=== PATIENT | male | born 1955 | race Caucasian/White ===

== ENCOUNTER → 2016-10-15 | Outpatient (CLI) | payer OTHER ==
--- NOTE | 2016-10-15 10:27 | DI ---
HISTORY: Fell on ice. Pain on the lateral aspect of the ankle. COMPARISON: None available. FINDINGS: There is no acute fracture or dislocation. Bony alignment and joint spaces are preserved. There are calcaneal spurs. There is soft tissue swelling, and MRI is recommended if clinical sympt oms persist. The ankle mortise is intact. IMPRESSION: 1. No acute fracture or dislocation. 2. There are calcaneal spurs. 3. Evidence of soft tissue swelling, and MRI is recommended if clinical symptoms persist.
--- NOTE | 2016-10-15 10:35 | DI ---
HISTORY: Fell on ice. Pain throughout the knee. Prior knee surgery. COMPARISON: None available. FINDINGS: There is no acute fracture or dislocation. Bony alignment and joint spaces are preserved. There is mild lateral subluxation of the patella. IMPRESSION: 1. No acute fracture. 2. Mild lateral subluxation of the patella.
== END ==
LOC: RAD 09:33
PROVIDERS: ATTEND Family Medicine
DX: M25.572 Pain in left ankle and joints of left foot (principal); M25.562 Pain in left knee; M77.32 Calcaneal spur, left foot; S83.012A Lateral subluxation of left patella, initial encounter; M79.89 Other specified soft tissue disorders; W00.0XXA Fall on same level due to ice and snow, initial encounter; Y93.89 Activity, other specified; Y92.481 Parking lot as the place of occurrence of the external cause
CPT/HCPCS: 73562; 73610; 99212

== ENCOUNTER → 2016-10-15 | Outpatient (CLI) | payer OTHER | LOC: MMPC 09:00 | PROVIDERS: ATTEND Family Medicine | DX: E29.1 Testicular hypofunction (principal); M25.572 Pain in left ankle and joints of left foot; M25.562 Pain in left knee; W00.0XXA Fall on same level due to ice and snow, initial encounter | CPT/HCPCS: G0463; J1071 ==

== ENCOUNTER → 2016-10-29 | Outpatient (CLI) | payer OTHER | LOC: MMPC 09:00 | PROVIDERS: ATTEND Family Medicine | DX: M62.838 Other muscle spasm (principal); R10.84 Generalized abdominal pain | CPT/HCPCS: 99213; G0463 ==

== ENCOUNTER → 2016-11-14 | Outpatient (CLI) | payer OTHER ==
[~2016-11-14] MED LIST: FUROSEMIDE 10 MG/1 ML - 4 ML IVP SCH
[2016-11-14] MEDS: Albumin Human Soln 25% 25 GM in Premix 1 BAG IV SCH ×2 (08:45→09:11)
[2016-11-14 09:30] VITALS: RESP 14; TEMP 97.9
== END ==
LOC: IV THERAPY 08:39
PROVIDERS: ATTEND Nurse Practitioner
DX: K74.60 Unspecified cirrhosis of liver (principal); R18.8 Other ascites
CPT/HCPCS: 82105; 96365; 96375; 99211; J1940

== ENCOUNTER → 2016-12-03 | Outpatient (CLI) | payer OTHER | LOC: MMPC 09:00 | PROVIDERS: ATTEND Family Medicine | DX: E29.1 Testicular hypofunction (principal) ==

== ENCOUNTER → 2016-12-13 | Outpatient (CLI) | payer OTHER ==
--- NOTE | 2016-12-13 16:19 | DI ---
CT ABDOMEN SCAN WITHOUT AND WITH IV CONTRAST, 12/13/2016 9:11 AM : Clinical History: Cirrhosis. Esophageal varices. Hepatitis C. Previous Exam: 12/02/2014. Scans are performed from the lower lung bases through the liver and kidneys without and with IV contr ast. Sagittal and coronal images are generated. 70 ml of Isovue 300 was injected IV. Low density oral barium contrast (Volumen - low density CT enterography oral contrast) was administered for all phase s of the exam. The lung bases are clear. The liver is small and has a nodular capsule without definite distortion of the vascular channels. This is consistent with the clinical diagnosis of cirrhosis. The patient is s tatus post cholecystectomy. There is splenomegaly with an intact splenic portal vein, but there are v arices in the splenic hilum and at the GE junction and along the left lateral aspect of the abdomen. Both kidneys are normal in size, shape, position and contour. There is no hydronephrosis or hydrouret er. No renal or ureteral calculi are present. There are no abnormal retrocrural or periaortic nodes. There is no ascites. READIN. Cirrhosis of the liver without evidence of primary or metastatic tumor. There is splenomegaly wit h esophageal and splenic varices as well as varices along the left lateral aspect of the abdomen. 2. The remainder of the exam is normal. CT PELVIS SCAN WITHOUT AND WITH IV CONTRAST, 12/13/2016 9:11 AM: Clinical History: See above. Previous Exam: 12/02/2014. Scans are performed from just superior to the umbilicus to the symphysis pubis without and with IV co ntrast. This is the same bolus of IV contrast used for the CT scans of the abdomen. Scans through the lower abdomen and pelvis show no masses or abnormal fluid collections. There is no adenopathy. The appendix is not visualized and may be surgically absent. There is no inflammatory mas s either in the right lower quadrant or in the cecal tip. The small bowel, terminal ileum, and ileoce raymond valve are intact. The colon is also normal. There are no hernias. There is a pigtail catheter in serted from the posterior approach along the superior margin of the right iliac crest and this lies o n the surface of the right iliacus muscle. There is evidence of localized inflammatory/infiltrative c hange but there is no fluid collection or abnormal gas collection to indicate presence of an abscess. READING: Normal CT scan of the pelvis. There is a pigtail catheter introduced from the posterior approach on t he right side superior to the iliac crest and lying on the anterior surface of the right iliacus musc le. There is no evidence of an abscess.
== END ==
LOC: CT 09:04
PROVIDERS: ATTEND Internal Medicine Gastroenterology
DX: K74.60 Unspecified cirrhosis of liver (principal); I85.00 Esophageal varices without bleeding; B18.2 Chronic viral hepatitis C; R16.1 Splenomegaly, not elsewhere classified
CPT/HCPCS: 74178

== ENCOUNTER 2017-01-01 12:45 | Outpatient (CLI) | payer OTHER ==
[~2017-01-01 12:45] MED LIST changes: +FUROSEMIDE 10 MG/1 ML - 4 ML IVP PRN; -FUROSEMIDE 10 MG/1 ML - 4 ML IVP SCH
[2017-01-01] MEDS: Albumin Human Soln 25% 25 GM in Premix 1 BAG IV SCH ×2 (12:55→13:27)
[2017-01-01 13:12] VITALS: RESP 18
[2017-01-01 14:28] VITALS: TEMP 98.6
== END 2017-01-01 14:15 | disposition home or self-care (01) ==
LOC: IV THERAPY 12:45
PROVIDERS: ATTEND Family Medicine
DX: R18.8 Other ascites (principal)
CPT/HCPCS: 96365; 96375; 99211; J1940

== ENCOUNTER → 2017-01-14 | Outpatient (CLI) | payer OTHER | LOC: MMPC 09:00 | PROVIDERS: ATTEND Family Medicine | DX: E29.1 Testicular hypofunction (principal) | CPT/HCPCS: G0463; J1071 ==

== ENCOUNTER → 2017-02-11 | Outpatient (CLI) | payer OTHER | LOC: MMPC 09:00 | PROVIDERS: ATTEND Family Medicine | DX: E29.1 Testicular hypofunction (principal); D63.8 Anemia in other chronic diseases classified elsewhere; K65.1 Peritoneal abscess | CPT/HCPCS: G0463; J1071 ==

== ENCOUNTER → 2017-02-12 | Outpatient (CLI) | payer OTHER ==
[2017-02-12 09:53] LABS: BUN/CREATININE RATIO 21.53 (6-20); CALCIUM 9.5 mg/dL (8.7-10.7); CHOL/HDL RATIO 2.91 RATIO (0-4.0); SERUM ALBUMIN 4.4 g/dL (3.5-4.8)
[2017-02-12 09:54] LABS: HEMOGLOBIN A1C 4.92 % (4.2-6.0)
[2017-02-12 10:07] LABS: FREE T4 (FREE THYROXINE) 1.08 ng/dL (0.93-1.71)
== END ==
LOC: LAB 09:01
PROVIDERS: ATTEND Family Medicine
DX: K65.1 Peritoneal abscess (principal); D63.8 Anemia in other chronic diseases classified elsewhere; K74.60 Unspecified cirrhosis of liver; K90.0 Celiac disease; Z79.899 Other long term (current) drug therapy; E29.1 Testicular hypofunction
CPT/HCPCS: 36415; 80053; 80061; 82105; 83036; 84439; 84443

== ENCOUNTER → 2017-03-14 | Outpatient (CLI) | payer OTHER ==
--- NOTE | 2017-03-14 10:23 | EKG ---
[address] [address] Measurements Intervals [place] Rate: 51 P: 47 [place]: 223 QRS: 7 QRSD: 113 T: 52 QT: 409 QTc: 385 Interpretive Statements SINUS BRADYCARDIA WITH FIRST DEGREE AV BLOCK POSSIBLE RIGHT VENTRICULAR CONDUCTION DELAY [RSR (QR) IN V1/V2] Compared to ECG 01/17/2016 11:48:38 First degree AV block now present Sinus rhythm no longer present Electronically Signed On 03-18-17 10:03:07 MDT by Damon Hemphill MD [email or web address]
== END ==
LOC: RAD 09:00
PROVIDERS: ATTEND Family Medicine
DX: M54.2 Cervicalgia (principal); R00.1 Bradycardia, unspecified; I44.0 Atrioventricular block, first degree
CPT/HCPCS: 93005; 93010

== ENCOUNTER → 2017-03-14 | Outpatient (CLI) | payer OTHER ==
[2017-03-14 10:21] LABS: BASOPHILS # (AUTO) 0.01 10*3/UL; BASOPHILS % (AUTO) 0.4 % (0-1); EOSINOPHILS # (AUTO) 0.06 10*3/UL; EOSINOPHILS % (AUTO) 2.1 % (0-8); HEMATOCRIT 36.7 % (42.0-52.0); HEMOGLOBIN 12.5 g/dL (14.0-18.0); LYMPHOCYTES # (AUTO) 0.67 10*3/uL; MEAN CORPUSCULAR HEMOGLOBIN 31.4 PG (27-31); MEAN CORPUSCULAR HGB CONC 34.1 g/dL (33-37); MEAN CORPUSCULAR VOLUME 92.2 FL (80-90); MEAN PLATELET VOLUME 9.9 FL (7.4-12.2); MONOCYTES # (AUTO) 0.36 10*3/UL (0.3-0.8); MONOCYTES % (AUTO) 12.8 % (5-15); NEUTROPHILS # (AUTO) 1.72 10*3/UL; NEUTROPHILS % (AUTO) 60.9 % (50-80); RED BLOOD COUNT 3.98 10^6/uL (4.70-6.10)
[2017-03-14 10:25] LABS: PLATELET MORPHOLOGY COMMENT NORMAL MORPHOLOGY (NORM); RBC MORPHOLOGY COMMENT NORMAL MORPHOLOGY (NORM); WBC MORPHOLOGY COMMENT NORMAL MORPHOLOGY (NORM)
[2017-03-14 10:31] LABS: BLOOD UREA NITROGEN 22 mg/dL (7-22); BUN/CREATININE RATIO 18.33 (6-20); CALCIUM 8.9 mg/dL (8.7-10.7); EST GLOMERULAR FILTRATION > 60 (>60 ml/min/1.73m(2)); SERUM ALBUMIN 4.1 g/dL (3.5-4.8)
[2017-03-14 10:48] LABS: HIV ANTIBODY NEGATIVE (N); HIV-1 P24 ANTIGEN NEGATIVE (N)
--- NOTE | 2017-03-14 11:18 | DI ---
HISTORY: Preoperative examination. COMPARISON: None available. FINDINGS: The heart is within normal limits. The lung taylor are essentially clear. IMPRESSION: 1. No acute cardiopulmonary abnormalities.
== END ==
LOC: RAD 09:41
PROVIDERS: ATTEND Family Medicine
DX: M54.2 Cervicalgia (principal); B18.2 Chronic viral hepatitis C
CPT/HCPCS: 36415; 71020; 80053; 85025; 85610; 85730; 86703; 86803; 87522

== ENCOUNTER → 2017-04-17 | Outpatient (CLI) | payer OTHER | LOC: MMPC 09:00 | PROVIDERS: ATTEND Family Medicine | DX: E29.1 Testicular hypofunction (principal); D63.8 Anemia in other chronic diseases classified elsewhere; D69.1 Qualitative platelet defects | CPT/HCPCS: G0463; J1071 ==

== ENCOUNTER → 2017-04-19 | Outpatient (CLI) | payer OTHER ==
[2017-04-19 08:59] LABS: HEMOGLOBIN 12.4 g/dL (14.0-18.0)
[2017-04-19 09:03] LABS: BASOPHILS # (AUTO) 0.01 10*3/UL; BASOPHILS % (AUTO) 0.3 % (0-1); EOSINOPHILS # (AUTO) 0.11 10*3/UL; EOSINOPHILS % (AUTO) 3.5 % (0-8); HEMATOCRIT 37.7 % (42.0-52.0); LYMPHOCYTES # (AUTO) 0.69 10*3/uL; MEAN CORPUSCULAR HEMOGLOBIN 30.7 PG (27-31); MEAN CORPUSCULAR HGB CONC 32.9 g/dL (33-37); MEAN CORPUSCULAR VOLUME 93.3 FL (80-90); MEAN PLATELET VOLUME 11.1 FL (7.4-12.2); MONOCYTES # (AUTO) 0.28 10*3/UL (0.3-0.8); MONOCYTES % (AUTO) 8.9 % (5-15); NEUTROPHILS # (AUTO) 2.05 10*3/UL; NEUTROPHILS % (AUTO) 65.3 % (50-80); RED BLOOD COUNT 4.04 10^6/uL (4.70-6.10)
[2017-04-19 09:52] LABS: PLATELET MORPHOLOGY COMMENT NORMAL MORPHOLOGY (NORM); RBC MORPHOLOGY COMMENT NORMAL MORPHOLOGY (NORM); WBC MORPHOLOGY COMMENT NORMAL MORPHOLOGY (NORM)
== END ==
LOC: LAB 08:31
PROVIDERS: ATTEND Family Medicine
DX: D69.1 Qualitative platelet defects (principal); K74.60 Unspecified cirrhosis of liver; D63.8 Anemia in other chronic diseases classified elsewhere
CPT/HCPCS: 36415; 85025

== ENCOUNTER → 2017-05-16 | Outpatient (CLI) | payer OTHER ==
--- NOTE | 2017-05-16 09:29 | DI ---
PA /LATERAL CHEST X-RAY, 05/16/2017 9:11 AM : Clinical History: Preoperative examination Previous Exam: March 14, 2017 There is no acute soft tissue or bony abnormality. Heart size is normal. Lungs are clear. Mediastinal structures are normal. There are no pulmonary nodules. There is a mild stable anterior wedging of th e lower thoracic spine. Postsurgical changes are seen at the cervicothoracic junction which are stabl e. IMPRESSION: Normal chest x-ray.
[2017-05-16 09:33] LABS: BLOOD UREA NITROGEN 23 mg/dL (7-22); CALCIUM 9.1 mg/dL (8.7-10.7); EST GLOMERULAR FILTRATION > 60 (>60 ml/min/1.73m(2))
--- NOTE | 2017-05-16 09:42 | EKG ---
[address] [address] Measurements Intervals [place] Rate: 49 P: 68 [place]: 215 QRS: 3 QRSD: 110 T: 57 QT: 433 QTc: 403 Interpretive Statements SINUS BRADYCARDIA WITH FIRST DEGREE AV BLOCK POSSIBLE RIGHT VENTRICULAR CONDUCTION DELAY [RSR (QR) IN V1/V2] Compared to ECG 03/14/2017 10:23:07 No significant changes Electronically Signed On 05-16-17 13:13:02 MDT by Damon Hemphill MD [email or web address]
[2017-05-16 10:15] LABS: HIV ANTIBODY NEGATIVE (N); HIV-1 P24 ANTIGEN NEGATIVE (N)
[2017-05-17 11:51] LABS: HEP B CORE IGM ANTIBODY Negative (Negative); HEPATITIS A IGM Negative (Negative); HEPATITIS B SURFACE AG Negative (Negative)
== END ==
LOC: RAD 09:07
PROVIDERS: ATTEND Nurse Practitioner
DX: M50.221 Other cervical disc displacement at C4-C5 level (principal); M50.222 Other cervical disc displacement at C5-C6 level; M54.12 Radiculopathy, cervical region; R00.1 Bradycardia, unspecified; I44.0 Atrioventricular block, first degree; D69.1 Qualitative platelet defects; E29.1 Testicular hypofunction
CPT/HCPCS: 36415; 71020; 80053; 85025; 85610; 85730; 86703; 86705; 86709; 86803; 87340; 87522; 93005; 93010

== ENCOUNTER → 2017-05-16 | Outpatient (CLI) | payer OTHER ==
[2017-05-16 09:27] LABS: BASOPHILS # (AUTO) 0.01 10*3/UL; BASOPHILS % (AUTO) 0.4 % (0-1); EOSINOPHILS % (AUTO) 3.7 % (0-8); HEMATOCRIT 38.8 % (42.0-52.0); HEMOGLOBIN 13.1 g/dL (14.0-18.0); LYMPHOCYTES # (AUTO) 0.62 10*3/uL; MEAN CORPUSCULAR HEMOGLOBIN 30.6 PG (27-31); MEAN CORPUSCULAR HGB CONC 33.8 g/dL (33-37); MEAN CORPUSCULAR VOLUME 90.7 FL (80-90); MEAN PLATELET VOLUME 11.3 FL (7.4-12.2); MONOCYTES % (AUTO) 11.1 % (5-15); NEUTROPHILS # (AUTO) 1.67 10*3/UL; NEUTROPHILS % (AUTO) 61.8 % (50-80); RED BLOOD COUNT 4.28 10^6/uL (4.70-6.10)
[2017-05-16 09:52] LABS: PLATELET MORPHOLOGY COMMENT NORMAL MORPHOLOGY (NORM); RBC MORPHOLOGY COMMENT NORMAL MORPHOLOGY (NORM); WBC MORPHOLOGY COMMENT NORMAL MORPHOLOGY (NORM)
== END ==
LOC: RAD 08:57
PROVIDERS: ATTEND Family Medicine
DX: D69.1 Qualitative platelet defects (principal)
CPT/HCPCS: 36415; 85025